=== PATIENT | female | born 1955 | race African-American/Black ===

== ENCOUNTER 2017-07-30 12:35 | Outpatient (CLI) | payer BC | END 2017-07-30 12:36 | disposition home or self-care (01) | LOC: BICRAD 12:35 | PROVIDERS: ATTEND Internal Medicine Rheumatology | DX: M06.9 Rheumatoid arthritis, unspecified (principal); M79.89 Other specified soft tissue disorders; M19.072 Primary osteoarthritis, left ankle and foot; S63.217A Subluxation of metacarpophalangeal joint of left little finger, initial encounter; M19.042 Primary osteoarthritis, left hand; S63.215A Subluxation of metacarpophalangeal joint of left ring finger, initial encounter; S63.213A Subluxation of metacarpophalangeal joint of left middle finger, initial encounter; S93.145A Subluxation of metatarsophalangeal joint of left lesser toe(s), initial encounter ==